=== PATIENT | male | born 1955 | race Caucasian/White ===

== ENCOUNTER 2016-08-05 12:08 | Inpatient (IN) | payer MEDICARE ==
[~2016-08-05] VITALS: Ht 180.3 cm; Wt 59.0 kg
[~2016-08-05 12:08] MED LIST: CLOP75TA22 PO; OXYC1TAB7 PO
[2016-08-05 13:57] VITALS: BP 129/69
[2016-08-05] MEDS: morphine SULFATE 10 MG/ML, 1ML IVPush PRN ×5 (14:08→22:09)
[2016-08-05] MEDS ORDERED: ACETAMINOPHEN 500 MG TABLET PO PRN (14:30)
[2016-08-05] MEDS: PIPERACILLIN/TAZO/PMX 3.375GM 50 ML IV SCH ×2 (15:02→20:45)
[2016-08-05 16:08] LABS: BLOOD UREA NITROGEN 12 mg/dL (7-18)
[2016-08-05 16:13] LABS: HEMOGLOBIN 9.2 g/dL (13.7-18.0)
[2016-08-05 16:49] LABS: DIFF TOTAL CELLS COUNTED 100 CELL DIFF
[2016-08-05 16:50] LABS: VERIFY COUNTS? YES
[2016-08-05 16:51] LABS: ANISOCYTOSIS 1+; LARGE PLATELETS 2+
[2016-08-05] MEDS ORDERED: FENTANYL PF 250 MCG/5ML ONE (16:55)
[2016-08-05] MEDS ORDERED: CEFOTETAN 1 GM ONE (16:56)
[2016-08-05] MEDS ORDERED: NEOSTIGMINE 1 MG/ML, 10ML ONE (16:56)
[2016-08-05] MEDS ORDERED: GLYCOPYRROLATE 0.2MG/1ML ONE (16:56)
[2016-08-05] MEDS ORDERED: METOPROLOL 1 MG/ML, 5ML ONE (16:56)
[2016-08-05] MEDS ORDERED: ROCURONIUM 10 MG/ML ONE (16:56)
[2016-08-05] MEDS ORDERED: ONDANSETRON 2MG/ML, 2ML ONE (16:56)
[2016-08-05] MEDS ORDERED: METOPROLOL 1 MG/ML, 5ML IV PRN (17:30)
[2016-08-05] MEDS ORDERED: ALBUTEROL SULFATE 2.5 MG/3 ML NPPB PRN (17:30)
[2016-08-05] MEDS ORDERED: OXYcodone 5 MG/5 ML ORAL.SOL UDC PO PRN (17:30)
[2016-08-05] MEDS ORDERED: ONDANSETRON 2MG/ML, 2ML IVPush PRN (17:30)
[2016-08-05] MEDS ORDERED: hydrALAzine 20 MG/ML, 1ML IV PRN (17:30)
[2016-08-05] MEDS ORDERED: PROMETHAZINE 25 MG/ML, 1ML IV PRN (17:30)
[2016-08-05] MEDS ORDERED: EPHEDRINE 50 MG/ML, 1ML IVPush PRN (17:30)
[2016-08-05] MEDS ORDERED: ACETAMINOPHEN 325 MG TABLET PO PRN (17:30)
[2016-08-05] MEDS ORDERED: LABETALOL 5MG/ML, 20ML IV PRN (17:30)
[2016-08-05] MEDS ORDERED: OXYcodone 5 MG/5 ML ORAL.SOL UDC ONE (18:14)
[2016-08-05] MEDS ORDERED: FENTANYL PF 100 MCG/2ML ONE (18:14)
[2016-08-05] MEDS: FENTANYL PF 100 MCG/2ML IV PRN ×2 (18:15→18:30)
[2016-08-05] MEDS ORDERED: HYDROmorphone 2 MG/ML, 1ML ONE (18:43)
[2016-08-05] MEDS: HYDROmorphone 1 MG/ML, 1ML IV PRN ×4 (18:47→19:18)
[2016-08-05 20:07] VITALS: BP 116/71
[2016-08-05] MEDS ORDERED: MAGNESIUM HYDROXIDE 8%, 30ML UDC PO ONE (20:30)
[2016-08-05] MEDS: KETOROLAC 30 MG/1 ML IV SCH (20:30)
[2016-08-05] MEDS ORDERED: SODIUM CHLORIDE 0.9% 500 ML IV ONE (22:30)
[2016-08-06] MEDS: morphine SULFATE 10 MG/ML, 1ML IVPush PRN ×2 (00:11→01:10)
[2016-08-06 00:43] VITALS: BP 86/61
[2016-08-06] MEDS: OXYcodone/APAP 7.5/325MG TABLET PO PRN ×5 (01:10→18:26)
[2016-08-06] MEDS: LACTATED RINGERS 1,000 ML IV SCH ×3 (02:00→23:22)
[2016-08-06] MEDS: DOCUSATE 100 MG CAPSULE PO SCH ×3 (02:56→20:27)
[2016-08-06] MEDS: PIPERACILLIN/TAZO/PMX 3.375GM 50 ML IV SCH ×4 (02:56→20:25)
[2016-08-06] MEDS: KETOROLAC 30 MG/1 ML IV SCH ×4 (02:56→20:25)
[2016-08-06 04:29] VITALS: BP 95/59
[2016-08-06 06:20] LABS: HEMOGLOBIN 7.5 g/dL (13.7-18.0)
[2016-08-06 06:33] LABS: DIFF TOTAL CELLS COUNTED 100 CELL DIFF
[2016-08-06 06:35] LABS: VERIFY COUNTS? YES
[2016-08-06 06:36] LABS: ANISOCYTOSIS 1+
[2016-08-06 06:37] LABS: SPHEROCYTES 1+
[2016-08-06 06:39] LABS: LARGE PLATELETS 1+; POLYCHROMASIA 1+
[2016-08-06 09:48] VITALS: BP 105/70
[2016-08-06 15:15] VITALS: BP 113/74
[2016-08-06] MEDS ORDERED: SODIUM CHLORIDE 0.9% 1,000ML IVBOLUS ONE (18:00)
[2016-08-06 20:11] VITALS: BP 134/73
[2016-08-07] VITALS (15 sets, daily range): BP systolic 103–134; BP diastolic 57–72
[2016-08-07] MEDS: OXYcodone/APAP 7.5/325MG TABLET PO PRN ×3 (00:53→23:32)
[2016-08-07] MEDS ORDERED: OXYC-223 PO (02:47)
[2016-08-07] MEDS ORDERED: augmentin (02:48)
[2016-08-07] MEDS: PIPERACILLIN/TAZO/PMX 3.375GM 50 ML IV SCH ×4 (03:00→23:32)
[2016-08-07] MEDS: KETOROLAC 30 MG/1 ML IV SCH ×4 (03:00→23:31)
[2016-08-07 06:02] LABS: HEMOGLOBIN 5.3 g/dL (13.7-18.0)
[2016-08-07] MEDS: LACTATED RINGERS 1,000 ML IV SCH ×2 (11:25→18:11)
[2016-08-07] MEDS: DOCUSATE 100 MG CAPSULE PO SCH ×2 (11:25→22:15)
[2016-08-07 17:39] LABS: HEMOGLOBIN 8.4 g/dL (13.7-18.0)
[2016-08-07] MEDS ORDERED: ALUMINUM/MAG/SIMETHICONE 30 ML UDC PO PRN (18:00)
[2016-08-07] MEDS: FAMOTIDINE 20 MG/2 ML IVPush SCH (22:14)
[2016-08-08] MEDS: LACTATED RINGERS 1,000 ML IV SCH ×3 (02:00→18:00)
[2016-08-08 03:47] VITALS: BP 126/68
[2016-08-08] MEDS: OXYcodone/APAP 7.5/325MG TABLET PO PRN ×3 (05:40→21:17)
[2016-08-08] MEDS: PIPERACILLIN/TAZO/PMX 3.375GM 50 ML IV SCH ×4 (05:40→23:30)
[2016-08-08] MEDS: KETOROLAC 30 MG/1 ML IV SCH ×4 (05:40→23:30)
[2016-08-08 09:21] VITALS: BP 130/68
[2016-08-08] MEDS: DOCUSATE 100 MG CAPSULE PO SCH ×2 (09:26→21:17)
[2016-08-08] MEDS: FAMOTIDINE 20 MG/2 ML IVPush SCH ×2 (09:26→21:00)
[2016-08-08] MEDS ORDERED: PROMETHAZINE 25MG TABLET PO PRN (11:30)
[2016-08-08 15:52] VITALS: BP 149/75
[2016-08-08 18:47] LABS: BLOOD UREA NITROGEN 21 mg/dL (7-18)
[2016-08-08 18:50] VITALS: BP 124/65
[2016-08-09] MEDS: LACTATED RINGERS 1,000 ML IV SCH ×3 (02:00→20:00)
[2016-08-09 02:10] VITALS: BP 137/67
[2016-08-09] MEDS: morphine SULFATE 10 MG/ML, 1ML IVPush PRN ×4 (04:51→22:45)
[2016-08-09] MEDS: PIPERACILLIN/TAZO/PMX 3.375GM 50 ML IV SCH ×4 (05:02→22:45)
[2016-08-09 05:55] LABS: HEMOGLOBIN 9.1 g/dL (13.7-18.0)
[2016-08-09 07:15] VITALS: BP 122/60
[2016-08-09] MEDS: KETOROLAC 30 MG/1 ML IV SCH ×4 (07:57→22:46)
[2016-08-09] MEDS: DOCUSATE 100 MG CAPSULE PO SCH ×2 (09:00→21:00)
[2016-08-09] MEDS: FAMOTIDINE 20 MG/2 ML IVPush SCH ×2 (09:44→22:50)
[2016-08-09 12:30] VITALS: BP 123/66
[2016-08-09 19:00] VITALS: BP 148/77
[2016-08-10 02:05] VITALS: BP 131/78
[2016-08-10] MEDS: LACTATED RINGERS 1,000 ML IV SCH ×2 (04:00→10:36)
[2016-08-10] MEDS: morphine SULFATE 10 MG/ML, 1ML IVPush PRN ×4 (04:30→23:33)
[2016-08-10] MEDS: KETOROLAC 30 MG/1 ML IV SCH ×3 (05:30→16:45)
[2016-08-10] MEDS: PIPERACILLIN/TAZO/PMX 3.375GM 50 ML IV SCH ×4 (05:30→23:33)
[2016-08-10 06:18] LABS: HEMOGLOBIN 9.4 g/dL (13.7-18.0)
[2016-08-10 06:21] LABS: BLOOD UREA NITROGEN 21 mg/dL (7-18)
[2016-08-10 06:39] VITALS: BP 120/67
[2016-08-10] MEDS: DOCUSATE 100 MG CAPSULE PO SCH ×2 (10:25→19:33)
[2016-08-10] MEDS: FAMOTIDINE 20 MG/2 ML IVPush SCH ×2 (10:31→19:33)
[2016-08-10 13:42] VITALS: BP 132/73
[2016-08-10] MEDS: METOCLOPRAMIDE 5 MG/ML, 2ML IVPush SCH (19:33)
[2016-08-10 19:44] VITALS: BP 155/86
[2016-08-11] MEDS: LACTATED RINGERS 1,000 ML IV SCH ×2 (00:03→08:06)
[2016-08-11 03:08] VITALS: BP 125/66
[2016-08-11] MEDS: METOCLOPRAMIDE 5 MG/ML, 2ML IVPush SCH ×4 (03:28→20:45)
[2016-08-11] MEDS: PIPERACILLIN/TAZO/PMX 3.375GM 50 ML IV SCH ×4 (04:56→23:30)
[2016-08-11 05:53] LABS: BLOOD UREA NITROGEN 20 mg/dL (7-18)
[2016-08-11 05:56] LABS: HEMOGLOBIN 9.3 g/dL (13.7-18.0)
[2016-08-11] MEDS: morphine SULFATE 10 MG/ML, 1ML IVPush PRN ×5 (05:57→23:37)
[2016-08-11 06:55] VITALS: BP 123/68
[2016-08-11] MEDS: DOCUSATE 100 MG CAPSULE PO SCH ×2 (07:50→20:52)
[2016-08-11] MEDS: FAMOTIDINE 20 MG/2 ML IVPush SCH (08:05)
[2016-08-11] MEDS ORDERED: TPN PER PHARMACY MC PRN (10:30)
[2016-08-11] MEDS ORDERED: LACTATED RINGERS 1,000 ML IV SCH (10:55)
[2016-08-11 12:55] VITALS: BP 140/69
[2016-08-11] MEDS ORDERED: FAT EMULSIONS IV SCH (17:00)
[2016-08-11] MEDS ORDERED: DEXTROSE 10% 500 ML IV PRN (17:00)
[2016-08-11] MEDS ORDERED: [UNRECOGNIZED DRUG - OTHER] IV SCH (17:00)
[2016-08-11] MEDS ORDERED: AMINO ACID 10% IV SCH (17:00)
[2016-08-11] MEDS ORDERED: DEXTROSE 50%, 50ML SYRINGE IVPush PRN (17:00)
[2016-08-11] MEDS ORDERED: DEXTROSE 70% IV SCH (17:00)
[2016-08-11] MEDS: FILTER, DISP 1.2 MICRON FOR TPN/PVN IV PRN (17:41)
[2016-08-11 19:21] VITALS: BP 138/66
[2016-08-11] MEDS: ENOXAPARIN 30 MG/0.3 ML SQ SCH (20:48)
[2016-08-11] MEDS: INSULIN REGULAR LOW DOSE Q6H X 48HRS SQ-INSULIN SCH (21:22)
[2016-08-12 01:58] VITALS: BP 130/70
[2016-08-12] MEDS: METOCLOPRAMIDE 5 MG/ML, 2ML IVPush SCH ×4 (03:07→20:32)
[2016-08-12] MEDS: morphine SULFATE 10 MG/ML, 1ML IVPush PRN ×8 (03:25→22:53)
[2016-08-12] MEDS: INSULIN REGULAR LOW DOSE Q6H X 48HRS SQ-INSULIN SCH ×4 (03:32→19:52)
[2016-08-12 03:51] LABS: ASPARTATE AMINO TRANSFERASE 18 U/L (15-37); BLOOD UREA NITROGEN 16 mg/dL (7-18)
[2016-08-12] MEDS: PIPERACILLIN/TAZO/PMX 3.375GM 50 ML IV SCH ×4 (05:38→23:00)
[2016-08-12 06:50] VITALS: BP 122/80
[2016-08-12] MEDS: DOCUSATE 100 MG CAPSULE PO SCH ×2 (08:21→19:57)
[2016-08-12] MEDS ORDERED: SODIUM CHLORIDE 0.9%, 500ML IVBOLUS ONE (09:30)
[2016-08-12] MEDS: ENOXAPARIN 30 MG/0.3 ML SQ SCH ×2 (09:55→19:57)
[2016-08-12] MEDS: SODIUM CHLORIDE 0.45% 1,000 ML IV SCH (12:09)
[2016-08-12 13:37] VITALS: BP 128/74
[2016-08-12 15:20] LABS: ASPARTATE AMINO TRANSFERASE 15 U/L (15-37); BLOOD UREA NITROGEN 12 mg/dL (7-18)
[2016-08-12 15:25] LABS: IS PT STATUS REG ER OR PRE ER? NO
[2016-08-12] MEDS ORDERED: FILTER 0.22 MICRON FOR AMIODARONE IV PRN (16:00)
[2016-08-12] MEDS: AMIODARONE 900 MG in DEXTROSE 5% 482 ML IV PRN (16:28)
[2016-08-12] MEDS ORDERED: [UNRECOGNIZED DRUG - OTHER] IV SCH (17:00)
[2016-08-12] MEDS ORDERED: AMINO ACID 10% IV SCH (17:00)
[2016-08-12] MEDS ORDERED: FAT EMULSIONS IV SCH (17:00)
[2016-08-12] MEDS ORDERED: DEXTROSE 70% IV SCH (17:00)
[2016-08-12] MEDS: FILTER, DISP 1.2 MICRON FOR TPN/PVN IV PRN (17:58)
[2016-08-12 20:00] VITALS: BP 139/78
[2016-08-13] MEDS: SODIUM CHLORIDE 0.45% 1,000 ML IV SCH (02:42)
[2016-08-13] MEDS: morphine SULFATE 10 MG/ML, 1ML IVPush PRN ×3 (02:42→09:00)
[2016-08-13] MEDS: METOCLOPRAMIDE 5 MG/ML, 2ML IVPush SCH ×4 (02:42→21:48)
[2016-08-13] MEDS: INSULIN REGULAR LOW DOSE Q6H X 48HRS SQ-INSULIN SCH ×3 (02:44→16:35)
[2016-08-13 03:50] VITALS: BP 159/79
[2016-08-13] MEDS: PIPERACILLIN/TAZO/PMX 3.375GM 50 ML IV SCH ×4 (05:15→23:31)
[2016-08-13] MEDS: ASPIRIN 325 MG TABLET PO SCH (05:16)
[2016-08-13 06:47] LABS: BLOOD UREA NITROGEN 14 mg/dL (7-18)
[2016-08-13 08:43] VITALS: BP 161/81
[2016-08-13] MEDS: ENOXAPARIN 30 MG/0.3 ML SQ SCH ×2 (09:00→21:48)
[2016-08-13] MEDS: DOCUSATE 100 MG CAPSULE PO SCH ×2 (09:00→21:00)
[2016-08-13] MEDS ORDERED: MIDAZOLAM 1 MG/ML, 2ML ONE (09:16)
[2016-08-13] MEDS ORDERED: FENTANYL PF 250 MCG/5ML ONE (09:16)
[2016-08-13] MEDS ORDERED: ROCURONIUM 10 MG/ML ONE (09:37)
[2016-08-13] MEDS ORDERED: PROPOFOL 10 MG/ML, 20ML ONE (09:37)
[2016-08-13] MEDS ORDERED: VASOPRESSIN 20 UNIT/ML, 1ML ONE (09:37)
[2016-08-13] MEDS ORDERED: HYDROmorphone 2 MG/ML, 1ML ONE ×2 (10:11→12:32)
[2016-08-13] MEDS ORDERED: ALBUMIN HUMAN 5% 500 ML ONE ×2 (10:27→11:07)
[2016-08-13 11:06] LABS: ABG COLLECTION SITE ARTERIAL LINE
[2016-08-13] MEDS ORDERED: THROMBIN 20,000 UNIT VIAL TP ONE (11:36)
[2016-08-13 12:11] LABS: ABG COLLECTION SITE ARTERIAL LINE
[2016-08-13] MEDS ORDERED: BACITRACIN 50,000 UNIT ONE (12:13)
[2016-08-13 13:58] LABS: HEMOGLOBIN 8.5 g/dL (13.7-18.0)
[2016-08-13] MEDS ORDERED: ENALAPRILAT 1.25 MG/ML, 2ML IV PRN (14:00)
[2016-08-13] MEDS ORDERED: LABETALOL 5MG/ML, 20ML IVPush PRN (14:00)
[2016-08-13] MEDS: ALBUTEROL/IPRATROPIUM 2.5MG/0.5MG, 3 ML INLINE SCH ×4 (14:20→22:01)
[2016-08-13] MEDS ORDERED: ALBUTEROL/IPRATROPIUM 2.5MG/0.5MG, 3 ML ONE (14:22)
[2016-08-13] MEDS ORDERED: ALBUTEROL/IPRATROPIUM 2.5MG/0.5MG, 3 ML INLINE PRN (14:30)
[2016-08-13] MEDS: AMIODARONE 900 MG in DEXTROSE 5% 482 ML IV PRN (15:17)
[2016-08-13] MEDS ORDERED: LACTULOSE 20 GM/30 ML UDC NG PRN (15:30)
[2016-08-13] MEDS ORDERED: LACTATED RINGERS 500 ML IV PRN (15:30)
[2016-08-13] MEDS ORDERED: LORazepam 1MG TABLET PO PRN (15:30)
[2016-08-13] MEDS ORDERED: LORazepam 2 MG/ML, 1ML IV PRN (15:30)
[2016-08-13] MEDS ORDERED: PHARMACY MAY ADJ FOR RENAL FX MC SCH (15:30)
[2016-08-13] MEDS ORDERED: SODIUM CHLORIDE 0.45% 1,000 ML IV SCH (15:30)
[2016-08-13] MEDS ORDERED: LACTATED RINGERS 1,000 ML IV PRN (15:30)
[2016-08-13] MEDS ORDERED: DEXTROSE 50%, 50ML SYRINGE IVPush PRN (15:30)
[2016-08-13] MEDS ORDERED: ONDANSETRON 2MG/ML, 2ML IV PRN (15:30)
[2016-08-13] MEDS ORDERED: LIDOCAINE-MPF 1%, 2ML ENDO PRN (15:30)
[2016-08-13] MEDS ORDERED: SODIUM CHLORIDE 0.9%, 500ML IV PRN (15:30)
[2016-08-13] MEDS ORDERED: GLUCAGON 1 MG IM PRN (15:30)
[2016-08-13] MEDS: PROPOFOL 100 ML IV PRN (16:18)
[2016-08-13] MEDS: NS + 20MEQ KCL 1,000 ML IV SCH (16:38)
[2016-08-13] MEDS ORDERED: DEXTROSE 70% IV SCH (17:00)
[2016-08-13] MEDS ORDERED: NOREPINEPHRINE 4 MG in SODIUM CHLORIDE 0.9% 246 ML IV PRN (17:00)
[2016-08-13] MEDS ORDERED: [UNRECOGNIZED DRUG - OTHER] IV SCH (17:00)
[2016-08-13] MEDS ORDERED: FAT EMULSIONS IV SCH (17:00)
[2016-08-13] MEDS ORDERED: AMINO ACID 10% IV SCH (17:00)
[2016-08-13] MEDS: morphine SULFATE 10 MG/ML, 1ML IV PRN (22:02)
[2016-08-14] MEDS: morphine SULFATE 10 MG/ML, 1ML IV PRN ×5 (01:05→23:06)
[2016-08-14] MEDS ORDERED: SODIUM CHLORIDE 0.9% 1,000ML IVBOLUS ONE (01:30)
[2016-08-14] MEDS: ALBUTEROL/IPRATROPIUM 2.5MG/0.5MG, 3 ML INLINE SCH ×6 (01:49→22:34)
[2016-08-14] MEDS: METOCLOPRAMIDE 5 MG/ML, 2ML IVPush SCH ×4 (03:01→21:36)
[2016-08-14] MEDS: PROPOFOL 100 ML IV PRN ×3 (03:02→17:45)
[2016-08-14 03:48] LABS: ABG COLLECTION SITE ARTERIAL LINE
[2016-08-14 03:56] LABS: ASPARTATE AMINO TRANSFERASE 27 U/L (15-37); BLOOD UREA NITROGEN 24 mg/dL (7-18)
[2016-08-14 04:16] LABS: HEMOGLOBIN 7.7 g/dL (13.7-18.0)
[2016-08-14 04:33] LABS: DIFF TOTAL CELLS COUNTED 100 CELL DIFF
[2016-08-14 04:35] LABS: ANISOCYTOSIS 1+
[2016-08-14 04:36] LABS: HYPOCHROMIA 1+
[2016-08-14 04:37] LABS: VERIFY COUNTS? YES
[2016-08-14] MEDS: NS + 20MEQ KCL 1,000 ML IV SCH ×2 (04:50→14:16)
[2016-08-14] MEDS: PIPERACILLIN/TAZO/PMX 3.375GM 50 ML IV SCH ×4 (05:06→23:06)
[2016-08-14] MEDS: ASPIRIN 325 MG TABLET PO SCH (05:06)
[2016-08-14 05:36] VITALS: BP 114/65
[2016-08-14] MEDS ORDERED: INSULIN REGULAR LOW DOSE QDAY SQ-INSULIN SCH (08:00)
[2016-08-14] MEDS: ENOXAPARIN 30 MG/0.3 ML SQ SCH ×2 (09:00→21:36)
[2016-08-14] MEDS: SENNA/DOCUSATE TABLET NG PRN (09:36)
[2016-08-14] MEDS ORDERED: PROPOFOL 10 MG/ML, 20ML ONE (09:37)
[2016-08-14] MEDS ORDERED: ROCURONIUM 10 MG/ML ONE (09:37)
[2016-08-14] MEDS: INSULIN REGULAR, HUMAN 100 UNITS/ML, 3ML MEDIUM DOSE SS SQ-INSULIN SCH ×2 (13:30→21:06)
[2016-08-14] MEDS: DOCUSATE 100 MG CAPSULE PO SCH ×2 (14:15→21:00)
[2016-08-14] MEDS ORDERED: AMINO ACID 10% IV SCH (17:00)
[2016-08-14] MEDS ORDERED: [UNRECOGNIZED DRUG - OTHER] IV SCH (17:00)
[2016-08-14] MEDS ORDERED: DEXTROSE 70% IV SCH (17:00)
[2016-08-14] MEDS ORDERED: FAT EMULSIONS IV SCH (17:00)
[2016-08-14] MEDS: AMIODARONE 900 MG in DEXTROSE 5% 482 ML IV PRN (20:37)
[2016-08-15] VITALS (8 sets, daily range): BP systolic 115–142; BP diastolic 50–58
[2016-08-15] MEDS: METOCLOPRAMIDE 5 MG/ML, 2ML IVPush SCH ×4 (01:37→20:35)
[2016-08-15] MEDS: PROPOFOL 100 ML IV PRN ×2 (01:37→07:58)
[2016-08-15] MEDS: morphine SULFATE 10 MG/ML, 1ML IV PRN ×3 (01:45→20:35)
[2016-08-15] MEDS: ALBUTEROL/IPRATROPIUM 2.5MG/0.5MG, 3 ML INLINE SCH (02:02)
[2016-08-15] MEDS: ASPIRIN 325 MG TABLET PO SCH (05:35)
[2016-08-15] MEDS: PIPERACILLIN/TAZO/PMX 3.375GM 50 ML IV SCH ×3 (05:51→17:50)
[2016-08-15] MEDS: NS + 20MEQ KCL 1,000 ML IV SCH (05:53)
[2016-08-15 05:58] LABS: ABG COLLECTION SITE NOT DOCUMENTED
[2016-08-15] MEDS: INSULIN REGULAR, HUMAN 100 UNITS/ML, 3ML MEDIUM DOSE SS SQ-INSULIN SCH ×4 (05:58→17:50)
[2016-08-15 06:07] LABS: HEMOGLOBIN 6.5 g/dL (13.7-18.0)
[2016-08-15 06:24] LABS: DIFF TOTAL CELLS COUNTED 100 CELL DIFF
[2016-08-15 06:25] LABS: VERIFY COUNTS? YES
[2016-08-15 06:26] LABS: ANISOCYTOSIS 1+
[2016-08-15 07:28] LABS: ASPARTATE AMINO TRANSFERASE 39 U/L (15-37); BLOOD UREA NITROGEN 25 mg/dL (7-18)
[2016-08-15] MEDS: MICAFUNGIN 100 MG in SODIUM CHLORIDE 0.9% 100 ML IV SCH (07:58)
[2016-08-15] MEDS: DOCUSATE 100 MG CAPSULE PO SCH ×2 (09:00→20:24)
[2016-08-15] MEDS: FENTANYL PF 2,500 MCG in SODIUM CHLORIDE 0.9% 200 ML IV PRN (10:08)
[2016-08-15] MEDS: ENOXAPARIN 30 MG/0.3 ML SQ SCH ×2 (10:11→20:35)
[2016-08-15] MEDS ORDERED: FAT EMULSIONS IV SCH (17:00)
[2016-08-15] MEDS ORDERED: AMINO ACID 10% IV SCH (17:00)
[2016-08-15] MEDS ORDERED: [UNRECOGNIZED DRUG - OTHER] IV SCH (17:00)
[2016-08-15] MEDS ORDERED: DEXTROSE 70% IV SCH (17:00)
[2016-08-15] MEDS: MORPHINE SULFATE 4 MG/ML, 1ML IVPush PRN (21:28)
[2016-08-16] MEDS: PIPERACILLIN/TAZO/PMX 3.375GM 50 ML IV SCH ×2 (00:09→05:48)
[2016-08-16] MEDS: MORPHINE SULFATE 4 MG/ML, 1ML IVPush PRN ×6 (00:10→19:40)
[2016-08-16] MEDS: AMIODARONE 900 MG in DEXTROSE 5% 482 ML IV PRN (00:10)
[2016-08-16] MEDS: METOCLOPRAMIDE 5 MG/ML, 2ML IVPush SCH ×4 (02:11→19:47)
[2016-08-16] MEDS: NS + 20MEQ KCL 1,000 ML IV SCH (02:11)
[2016-08-16 05:02] LABS: HEMOGLOBIN 9.1 g/dL (13.7-18.0)
[2016-08-16] MEDS: ASPIRIN 325 MG TABLET PO SCH (05:13)
[2016-08-16 05:15] LABS: BLOOD UREA NITROGEN 27 mg/dL (7-18)
[2016-08-16 05:25] LABS: ABG COLLECTION SITE NOT DOCUMENTED
[2016-08-16 05:29] LABS: DIFF TOTAL CELLS COUNTED 100 CELL DIFF
[2016-08-16 05:31] LABS: ANISOCYTOSIS 1+; VERIFY COUNTS? YES
[2016-08-16 05:32] LABS: HYPOCHROMIA 1+; POLYCHROMASIA 1+
[2016-08-16] MEDS: INSULIN REGULAR, HUMAN 100 UNITS/ML, 3ML MEDIUM DOSE SS SQ-INSULIN SCH ×4 (06:00→18:43)
[2016-08-16 06:06] VITALS: BP 154/62
[2016-08-16] MEDS: ERTAPENEM 1 GM in SODIUM CHLORIDE 0.9% 50 ML IV SCH (08:23)
[2016-08-16] MEDS: MICAFUNGIN 100 MG in SODIUM CHLORIDE 0.9% 100 ML IV SCH (08:23)
[2016-08-16] MEDS: DOCUSATE 100 MG CAPSULE PO SCH ×2 (09:00→20:32)
[2016-08-16] MEDS: ENOXAPARIN 30 MG/0.3 ML SQ SCH ×2 (10:09→20:34)
[2016-08-16] MEDS: FENTANYL PF 2,500 MCG in SODIUM CHLORIDE 0.9% 200 ML IV PRN (11:05)
[2016-08-16] MEDS: FUROSEMIDE 20 MG/2 ML IV SCH (13:02)
[2016-08-16] MEDS ORDERED: AMINO ACID 10% IV SCH (17:00)
[2016-08-16] MEDS ORDERED: FAT EMULSIONS IV SCH (17:00)
[2016-08-16] MEDS ORDERED: DEXTROSE 70% IV SCH (17:00)
[2016-08-16] MEDS ORDERED: [UNRECOGNIZED DRUG - OTHER] IV SCH (17:00)
[2016-08-16] MEDS: FILTER, DISP 1.2 MICRON FOR TPN/PVN IV PRN (18:27)
[2016-08-17] MEDS: MORPHINE SULFATE 4 MG/ML, 1ML IVPush PRN ×6 (00:06→18:34)
[2016-08-17] MEDS: FUROSEMIDE 20 MG/2 ML IV SCH ×2 (00:11→12:23)
[2016-08-17] MEDS: METOCLOPRAMIDE 5 MG/ML, 2ML IVPush SCH ×4 (02:34→19:39)
[2016-08-17 05:00] VITALS: BP 167/73
[2016-08-17 05:09] LABS: HEMOGLOBIN 9.8 g/dL (13.7-18.0)
[2016-08-17 05:24] LABS: BLOOD UREA NITROGEN 31 mg/dL (7-18)
[2016-08-17 05:48] LABS: DIFF TOTAL CELLS COUNTED 100 CELL DIFF
[2016-08-17 05:50] LABS: VERIFY COUNTS? YES
[2016-08-17 05:51] LABS: ANISOCYTOSIS 1+; HYPOCHROMIA 1+; LARGE PLATELETS 1+; POLYCHROMASIA 1+
[2016-08-17] MEDS: INSULIN REGULAR, HUMAN 100 UNITS/ML, 3ML MEDIUM DOSE SS SQ-INSULIN SCH ×5 (06:00→19:46)
[2016-08-17] MEDS: ASPIRIN 325 MG TABLET PO SCH (06:34)
[2016-08-17] MEDS: ERTAPENEM 1 GM in SODIUM CHLORIDE 0.9% 50 ML IV SCH (07:08)
[2016-08-17] MEDS: AMIODARONE 900 MG in DEXTROSE 5% 482 ML IV PRN (07:38)
[2016-08-17] MEDS: MICAFUNGIN 100 MG in SODIUM CHLORIDE 0.9% 100 ML IV SCH (07:53)
[2016-08-17] MEDS: DOCUSATE 100 MG CAPSULE PO SCH ×2 (09:00→19:39)
[2016-08-17] MEDS: ENOXAPARIN 30 MG/0.3 ML SQ SCH ×2 (10:47→19:39)
[2016-08-17] MEDS: FENTANYL PF 2,500 MCG in SODIUM CHLORIDE 0.9% 200 ML IV PRN (11:37)
[2016-08-17] MEDS ORDERED: AMINO ACID 10% IV SCH (17:00)
[2016-08-17] MEDS ORDERED: DEXTROSE 70% IV SCH (17:00)
[2016-08-17] MEDS ORDERED: [UNRECOGNIZED DRUG - OTHER] IV SCH (17:00)
[2016-08-17] MEDS ORDERED: FAT EMULSIONS IV SCH (17:00)
[2016-08-17 19:12] VITALS: BP 166/78
[2016-08-17] MEDS: OXYcodone/APAP 7.5/325MG TABLET PO PRN (20:46)
[2016-08-18] MEDS: INSULIN REGULAR, HUMAN 100 UNITS/ML, 3ML MEDIUM DOSE SS SQ-INSULIN SCH ×4 (00:59→20:49)
[2016-08-18] MEDS: FUROSEMIDE 20 MG/2 ML IV SCH ×2 (00:59→13:48)
[2016-08-18] MEDS: METOCLOPRAMIDE 5 MG/ML, 2ML IVPush SCH ×4 (01:01→20:49)
[2016-08-18 01:35] VITALS: BP 149/77
[2016-08-18 05:03] LABS: HEMOGLOBIN 9.6 g/dL (13.7-18.0)
[2016-08-18 05:17] LABS: ASPARTATE AMINO TRANSFERASE 39 U/L (15-37); BLOOD UREA NITROGEN 33 mg/dL (7-18)
[2016-08-18] MEDS: ASPIRIN 325 MG TABLET PO SCH (05:32)
[2016-08-18 07:22] VITALS: BP 164/83
[2016-08-18] MEDS: ERTAPENEM 1 GM in SODIUM CHLORIDE 0.9% 50 ML IV SCH (08:06)
[2016-08-18] MEDS: ENOXAPARIN 30 MG/0.3 ML SQ SCH ×2 (08:07→20:50)
[2016-08-18] MEDS: DOCUSATE 100 MG CAPSULE PO SCH ×2 (08:14→20:49)
[2016-08-18] MEDS: MICAFUNGIN 100 MG in SODIUM CHLORIDE 0.9% 100 ML IV SCH (08:18)
[2016-08-18] MEDS: OXYcodone/APAP 7.5/325MG TABLET PO PRN ×2 (08:24→18:09)
[2016-08-18] MEDS: MORPHINE SULFATE 4 MG/ML, 1ML IVPush PRN ×2 (09:46→13:47)
[2016-08-18] MEDS: FENTANYL PF 2,500 MCG in SODIUM CHLORIDE 0.9% 200 ML IV PRN (11:33)
[2016-08-18 14:20] VITALS: BP 160/76
[2016-08-18] MEDS ORDERED: AMINO ACID 10% IV SCH (17:00)
[2016-08-18] MEDS ORDERED: FAT EMULSIONS IV SCH (17:00)
[2016-08-18] MEDS ORDERED: [UNRECOGNIZED DRUG - OTHER] IV SCH (17:00)
[2016-08-18] MEDS ORDERED: DEXTROSE 70% IV SCH (17:00)
[2016-08-18] MEDS: METOPROLOL TARTRATE 25 MG TABLET PO SCH (18:05)
[2016-08-18] MEDS: FILTER, DISP 1.2 MICRON FOR TPN/PVN IV PRN (18:06)
[2016-08-18 20:58] VITALS: BP 157/69
[2016-08-19] MEDS: FUROSEMIDE 20 MG/2 ML IV SCH ×2 (00:32→11:36)
[2016-08-19] MEDS: INSULIN REGULAR, HUMAN 100 UNITS/ML, 3ML MEDIUM DOSE SS SQ-INSULIN SCH ×2 (02:23→08:00)
[2016-08-19] MEDS: METOCLOPRAMIDE 5 MG/ML, 2ML IVPush SCH ×4 (02:24→19:43)
[2016-08-19] MEDS: OXYcodone/APAP 7.5/325MG TABLET PO PRN ×2 (02:29→08:18)
[2016-08-19 03:01] VITALS: BP 156/77
[2016-08-19 05:14] LABS: HEMOGLOBIN 9.3 g/dL (13.7-18.0)
[2016-08-19 05:27] LABS: BLOOD UREA NITROGEN 31 mg/dL (7-18)
[2016-08-19] MEDS: ASPIRIN 325 MG TABLET PO SCH (05:43)
[2016-08-19] MEDS: METOPROLOL TARTRATE 25 MG TABLET PO SCH ×2 (05:43→19:43)
[2016-08-19 05:52] LABS: DIFF TOTAL CELLS COUNTED 100 CELL DIFF
[2016-08-19 05:53] LABS: ANISOCYTOSIS 1+; HYPOCHROMIA 1+; POLYCHROMASIA 1+; TARGET CELLS 1+; VERIFY COUNTS? YES
[2016-08-19 05:54] LABS: LARGE PLATELETS 1+
[2016-08-19] MEDS: MORPHINE SULFATE 4 MG/ML, 1ML IVPush PRN ×5 (06:15→20:32)
[2016-08-19 06:23] VITALS: BP 164/81
[2016-08-19] MEDS: FENTANYL PF 2,500 MCG in SODIUM CHLORIDE 0.9% 200 ML IV SCH (07:40)
[2016-08-19] MEDS: DOCUSATE 100 MG CAPSULE PO SCH ×2 (09:00→20:32)
[2016-08-19] MEDS: MICAFUNGIN 100 MG in SODIUM CHLORIDE 0.9% 100 ML IV SCH (09:05)
[2016-08-19] MEDS: ERTAPENEM 1 GM in SODIUM CHLORIDE 0.9% 50 ML IV SCH (10:24)
[2016-08-19] MEDS: SENNA/DOCUSATE TABLET NG PRN (11:36)
[2016-08-19] MEDS: ENOXAPARIN 30 MG/0.3 ML SQ SCH ×2 (11:36→20:32)
[2016-08-19] MEDS ORDERED: OMNIPAQUE 350 MG/ML, 100ML BOTTLE ONE (12:25)
[2016-08-19 12:39] VITALS: BP 165/82
[2016-08-19] MEDS ORDERED: DEXTROSE 70% IV SCH (17:00)
[2016-08-19] MEDS ORDERED: [UNRECOGNIZED DRUG - OTHER] IV SCH (17:00)
[2016-08-19] MEDS ORDERED: FAT EMULSIONS IV SCH (17:00)
[2016-08-19] MEDS ORDERED: AMINO ACID 10% IV SCH (17:00)
[2016-08-19 18:15] VITALS: BP 142/70
[2016-08-19 18:30] VITALS: BP 129/66
[2016-08-20] MEDS: FUROSEMIDE 20 MG/2 ML IV SCH ×2 (00:19→13:18)
[2016-08-20] MEDS: MORPHINE SULFATE 4 MG/ML, 1ML IVPush PRN ×4 (00:26→22:43)
[2016-08-20] MEDS: METOCLOPRAMIDE 5 MG/ML, 2ML IVPush SCH ×4 (02:19→22:21)
[2016-08-20 03:18] VITALS: BP 148/67
[2016-08-20] MEDS: METOPROLOL TARTRATE 25 MG TABLET PO SCH ×2 (05:35→17:48)
[2016-08-20] MEDS: ASPIRIN 325 MG TABLET PO SCH (05:35)
[2016-08-20 05:46] LABS: HEMOGLOBIN 8.7 g/dL (13.7-18.0)
[2016-08-20 06:07] LABS: DIFF TOTAL CELLS COUNTED 100 CELL DIFF
[2016-08-20 06:08] LABS: ANISOCYTOSIS 1+; VERIFY COUNTS? YES
[2016-08-20 06:09] LABS: POLYCHROMASIA 1+
[2016-08-20 06:10] LABS: HYPOCHROMIA 1+; LARGE PLATELETS 1+
[2016-08-20 06:40] VITALS: BP 141/62
[2016-08-20] MEDS: ERTAPENEM 1 GM in SODIUM CHLORIDE 0.9% 50 ML IV SCH (07:55)
[2016-08-20] MEDS: ENOXAPARIN 30 MG/0.3 ML SQ SCH ×2 (08:54→22:22)
[2016-08-20] MEDS: MICAFUNGIN 100 MG in SODIUM CHLORIDE 0.9% 100 ML IV SCH (08:55)
[2016-08-20] MEDS: OXYcodone/APAP 7.5/325MG TABLET PO PRN ×3 (08:59→17:48)
[2016-08-20] MEDS: DOCUSATE 100 MG CAPSULE PO SCH ×2 (08:59→22:21)
[2016-08-20] MEDS ORDERED: OXANDROLONE PO SCH (09:00)
[2016-08-20] MEDS: OXANDROLONE 2.5 MG TABLET PO SCH ×2 (10:26→22:22)
[2016-08-20 14:14] VITALS: BP 111/65
[2016-08-20] MEDS: FENTANYL PF 2,500 MCG in SODIUM CHLORIDE 0.9% 200 ML IV SCH (17:03)
[2016-08-20 18:19] VITALS: BP 115/61
[2016-08-20] MEDS ORDERED: OXANDROLONE 2.5 MG TABLET PO SCH (21:00)
[2016-08-21] MEDS: OXYcodone/APAP 7.5/325MG TABLET PO PRN ×4 (00:06→18:20)
[2016-08-21] MEDS: FUROSEMIDE 20 MG/2 ML IV SCH ×3 (00:06→23:58)
[2016-08-21 02:13] VITALS: BP 117/62
[2016-08-21] MEDS: MORPHINE SULFATE 4 MG/ML, 1ML IVPush PRN ×3 (05:23→23:57)
[2016-08-21] MEDS: METOPROLOL TARTRATE 25 MG TABLET PO SCH ×2 (05:41→18:24)
[2016-08-21] MEDS: ASPIRIN 325 MG TABLET PO SCH (05:41)
[2016-08-21] MEDS: METOCLOPRAMIDE 5 MG/ML, 2ML IVPush SCH ×4 (05:41→23:58)
[2016-08-21 06:42] VITALS: BP 118/66
[2016-08-21] MEDS ORDERED: POTASSIUM CHLORIDE 10% 20 MEQ/15 ML UDC PO ONE (07:30)
[2016-08-21] MEDS: MICAFUNGIN 100 MG in SODIUM CHLORIDE 0.9% 100 ML IV SCH (09:15)
[2016-08-21] MEDS: ERTAPENEM 1 GM in SODIUM CHLORIDE 0.9% 50 ML IV SCH (09:15)
[2016-08-21] MEDS: DOCUSATE 100 MG CAPSULE PO SCH ×2 (09:26→21:16)
[2016-08-21] MEDS: ENOXAPARIN 30 MG/0.3 ML SQ SCH ×2 (09:26→21:17)
[2016-08-21] MEDS: OXANDROLONE 2.5 MG TABLET PO SCH (10:03)
[2016-08-21 13:40] VITALS: BP 108/61
[2016-08-21] MEDS: FENTANYL PF 2,500 MCG in SODIUM CHLORIDE 0.9% 200 ML IV SCH (16:52)
[2016-08-21 18:26] VITALS: BP 121/66
[2016-08-21] MEDS: FERROUS SULFATE 325 MG TABLET PO SCH (21:16)
[2016-08-21] MEDS: MULTIVITAMIN 1 TABLET PO SCH (21:16)
[2016-08-22] MEDS: OXYcodone/APAP 7.5/325MG TABLET PO PRN (00:24)
[2016-08-22 02:05] VITALS: BP 135/66
[2016-08-22] MEDS: METOCLOPRAMIDE 5 MG/ML, 2ML IVPush SCH ×4 (06:00→23:16)
[2016-08-22] MEDS: METOPROLOL TARTRATE 25 MG TABLET PO SCH ×2 (06:00→17:31)
[2016-08-22] MEDS: ASPIRIN 325 MG TABLET PO SCH (06:00)
[2016-08-22 06:18] LABS: HEMOGLOBIN 7.8 g/dL (13.7-18.0)
[2016-08-22] MEDS: MORPHINE SULFATE 4 MG/ML, 1ML IVPush PRN ×3 (06:20→23:16)
[2016-08-22 06:41] LABS: ASPARTATE AMINO TRANSFERASE 41 U/L (15-37); BLOOD UREA NITROGEN 19 mg/dL (7-18)
[2016-08-22 06:53] VITALS: BP 123/60
[2016-08-22 07:20] LABS: DIFF TOTAL CELLS COUNTED 100 CELL DIFF
[2016-08-22 07:21] LABS: VERIFY COUNTS? YES
[2016-08-22 07:22] LABS: ANISOCYTOSIS 1+; POLYCHROMASIA 1+
[2016-08-22 07:23] LABS: HYPOCHROMIA 1+; LARGE PLATELETS 1+
[2016-08-22] MEDS: ERTAPENEM 1 GM in SODIUM CHLORIDE 0.9% 50 ML IV SCH (08:22)
[2016-08-22] MEDS: ENOXAPARIN 30 MG/0.3 ML SQ SCH ×2 (09:54→20:22)
[2016-08-22] MEDS: MULTIVITAMIN 1 TABLET PO SCH ×2 (09:54→20:22)
[2016-08-22] MEDS: MICAFUNGIN 100 MG in SODIUM CHLORIDE 0.9% 100 ML IV SCH (09:55)
[2016-08-22] MEDS: DOCUSATE 100 MG CAPSULE PO SCH ×2 (09:55→20:19)
[2016-08-22] MEDS: OXANDROLONE 2.5 MG TABLET PO SCH ×2 (09:55→22:59)
[2016-08-22] MEDS: FERROUS SULFATE 325 MG TABLET PO SCH ×2 (09:55→20:21)
[2016-08-22] MEDS: FUROSEMIDE 20 MG/2 ML IV SCH ×2 (11:44→23:16)
[2016-08-22 13:11] VITALS: BP 128/67
[2016-08-22] MEDS: OXYcodone IR 5MG TABLET PO PRN ×2 (14:26→20:23)
[2016-08-22] MEDS: FENTANYL PF 2,500 MCG in SODIUM CHLORIDE 0.9% 200 ML IV SCH (15:48)
[2016-08-22] MEDS: LACTOBACILLUS 1GM/ PACKET PO SCH ×2 (16:33→20:21)
[2016-08-22 17:29] VITALS: BP 123/68
[2016-08-22 22:00] VITALS: BP 119/67
[2016-08-23] MEDS: OXYcodone IR 5MG TABLET PO PRN ×5 (02:26→22:38)
[2016-08-23 03:20] VITALS: BP 135/67
[2016-08-23 05:29] LABS: BLOOD UREA NITROGEN 17 mg/dL (7-18)
[2016-08-23 05:46] LABS: HEMOGLOBIN 7.9 g/dL (13.7-18.0)
[2016-08-23] MEDS: LACTOBACILLUS 1GM/ PACKET PO SCH ×4 (06:00→21:59)
[2016-08-23] MEDS: ASPIRIN 325 MG TABLET PO SCH (06:00)
[2016-08-23] MEDS: METOPROLOL TARTRATE 25 MG TABLET PO SCH ×2 (06:07→17:41)
[2016-08-23] MEDS: METOCLOPRAMIDE 5 MG/ML, 2ML IVPush SCH ×3 (06:08→17:41)
[2016-08-23] MEDS: MORPHINE SULFATE 4 MG/ML, 1ML IVPush PRN ×2 (06:38→19:56)
[2016-08-23] MEDS: ERTAPENEM 1 GM in SODIUM CHLORIDE 0.9% 50 ML IV SCH (07:43)
[2016-08-23] MEDS: DOCUSATE 100 MG CAPSULE PO SCH ×2 (09:50→21:59)
[2016-08-23] MEDS: MULTIVITAMIN 1 TABLET PO SCH ×2 (09:50→21:59)
[2016-08-23] MEDS: ENOXAPARIN 30 MG/0.3 ML SQ SCH ×2 (09:50→21:59)
[2016-08-23] MEDS: FERROUS SULFATE 325 MG TABLET PO SCH ×2 (09:50→21:59)
[2016-08-23] MEDS: MICAFUNGIN 100 MG in SODIUM CHLORIDE 0.9% 100 ML IV SCH (09:50)
[2016-08-23 10:04] VITALS: BP 132/71
[2016-08-23] MEDS: OXANDROLONE 2.5 MG TABLET PO SCH ×2 (10:26→23:24)
[2016-08-23] MEDS: FUROSEMIDE 20 MG/2 ML IV SCH (12:00)
[2016-08-23 14:23] VITALS: BP 109/56
[2016-08-23] MEDS: FENTANYL PF 2,500 MCG in SODIUM CHLORIDE 0.9% 200 ML IV SCH (16:28)
[2016-08-23 17:42] VITALS: BP 126/67
[2016-08-23 21:00] VITALS: BP 120/63
[2016-08-24] MEDS: FUROSEMIDE 20 MG/2 ML IV SCH ×2 (00:33→11:58)
[2016-08-24] MEDS: METOCLOPRAMIDE 5 MG/ML, 2ML IVPush SCH ×4 (00:40→16:56)
[2016-08-24] MEDS: MORPHINE SULFATE 4 MG/ML, 1ML IVPush PRN (01:40)
[2016-08-24 04:53] VITALS: BP 126/62
[2016-08-24 05:37] LABS: BLOOD UREA NITROGEN 14 mg/dL (7-18)
[2016-08-24 05:55] LABS: HEMOGLOBIN 7.5 g/dL (13.7-18.0)
[2016-08-24] MEDS: ASPIRIN 325 MG TABLET PO SCH (06:00)
[2016-08-24] MEDS: OXYcodone IR 5MG TABLET PO PRN ×3 (06:13→13:59)
[2016-08-24] MEDS: LACTOBACILLUS 1GM/ PACKET PO SCH ×3 (06:15→16:00)
[2016-08-24] MEDS: METOPROLOL TARTRATE 25 MG TABLET PO SCH ×2 (06:16→17:32)
[2016-08-24 06:18] LABS: DIFF TOTAL CELLS COUNTED 100 CELL DIFF
[2016-08-24 06:19] LABS: ANISOCYTOSIS 1+; HYPOCHROMIA 1+; POIKILOCYTOSIS 1+; POLYCHROMASIA 1+; VERIFY COUNTS? YES
[2016-08-24 06:20] LABS: LARGE PLATELETS 1+
[2016-08-24 07:01] VITALS: BP 105/54
[2016-08-24] MEDS: ERTAPENEM 1 GM in SODIUM CHLORIDE 0.9% 50 ML IV SCH (09:08)
[2016-08-24] MEDS: FERROUS SULFATE 325 MG TABLET PO SCH (09:31)
[2016-08-24] MEDS: DOCUSATE 100 MG CAPSULE PO SCH (09:31)
[2016-08-24] MEDS: MULTIVITAMIN 1 TABLET PO SCH (09:31)
[2016-08-24] MEDS: OXANDROLONE 2.5 MG TABLET PO SCH (09:31)
[2016-08-24] MEDS: MICAFUNGIN 100 MG in SODIUM CHLORIDE 0.9% 100 ML IV SCH (09:32)
[2016-08-24] MEDS: ENOXAPARIN 30 MG/0.3 ML SQ SCH (09:32)
[2016-08-24 12:18] VITALS: BP 130/59
[2016-08-24] MEDS ORDERED: OXAN10TA PO (12:25)
[2016-08-24] MEDS ORDERED: OXYC5TAB3 PO (12:25)
[2016-08-24] MEDS ORDERED: METO25TA35 PO (12:25)
[2016-08-24] MEDS ORDERED: CLIN300C93 PO (14:13)
[2016-08-24] MEDS ORDERED: LEVO500T8 PO (14:13)
[2016-08-24] MEDS ORDERED: METR500T PO (14:14)
[2016-08-24] MEDS: FENTANYL PF 2,500 MCG in SODIUM CHLORIDE 0.9% 200 ML IV SCH (16:55)
[2016-08-24] MEDS: OXYcodone/APAP 7.5/325MG TABLET PO PRN (17:32)
== END 2016-08-24 20:15 | disposition home health service (06) | DRG 853 ==
LOC: ORIP 12:08 → 4NOR 13:03 → 4WST 08-12 15:29 → CCU 08-13 12:11 → 5SO 08-17 18:42 → 4NOR 08-19 17:59
PROVIDERS: ADMIT Surgery
PROC: 0DBM0ZZ Excision of Descending Colon, Open Approach (ICD-10-PCS; 2016-08-05)
PROC: 30233N1 Transfusion of Nonautologous Red Blood Cells into Peripheral Vein, Percutaneous Approach (ICD-10-PCS; 2016-08-07)
PROC: 02HV33Z Insertion of Infusion Device into Superior Vena Cava, Percutaneous Approach (ICD-10-PCS; 2016-08-11)
PROC: B5181ZA Fluoroscopy of Superior Vena Cava using Low Osmolar Contrast, Guidance (ICD-10-PCS; 2016-08-11)
PROC: 0JB80ZZ Excision of Abdomen Subcutaneous Tissue and Fascia, Open Approach (ICD-10-PCS; 2016-08-13)
PROC: 0DN80ZZ Release Small Intestine, Open Approach (ICD-10-PCS; 2016-08-13)
PROC: 0DNW0ZZ Release Peritoneum, Open Approach (ICD-10-PCS; 2016-08-13)
PROC: 0W9F0ZZ Drainage of Abdominal Wall, Open Approach (ICD-10-PCS; 2016-08-13)
PROC: 0WQFXZ2 Repair Abdominal Wall, Stoma, External Approach (ICD-10-PCS; 2016-08-13)
PROC: 30233L1 Transfusion of Nonautologous Fresh Plasma into Peripheral Vein, Percutaneous Approach (ICD-10-PCS; 2016-08-13)
PROC: 30233N1 Transfusion of Nonautologous Red Blood Cells into Peripheral Vein, Percutaneous Approach (ICD-10-PCS; 2016-08-13)
PROC: 30233R1 Transfusion of Nonautologous Platelets into Peripheral Vein, Percutaneous Approach (ICD-10-PCS; 2016-08-13)
PROC: 0DNV0ZZ Release Mesentery, Open Approach (ICD-10-PCS; 2016-08-13)
PROC: 0DNL0ZZ Release Transverse Colon, Open Approach (ICD-10-PCS; 2016-08-13)
PROC: 0DBM0ZZ Excision of Descending Colon, Open Approach (ICD-10-PCS; 2016-08-13)
PROC: 6A550Z2 Pheresis of Platelets, Single (ICD-10-PCS; 2016-08-13)
PROC: 0DNS0ZZ (ICD-10-PCS; principal; 2016-08-13 09:00)
PROC: 30233N1 Transfusion of Nonautologous Red Blood Cells into Peripheral Vein, Percutaneous Approach (ICD-10-PCS; 2016-08-15)
PROC: 30233K1 Transfusion of Nonautologous Frozen Plasma into Peripheral Vein, Percutaneous Approach (ICD-10-PCS; 2016-08-15)
PROC: 5A1945Z Respiratory Ventilation, 24-96 Consecutive Hours (ICD-10-PCS; 2016-08-15)
PROC: 0BH17EZ Insertion of Endotracheal Airway into Trachea, Via Natural or Artificial Opening (ICD-10-PCS; 2016-08-15)
DX: A41.9 Sepsis, unspecified organism (principal); K65.1 Peritoneal abscess; K56.7 Ileus, unspecified; I48.92 Unspecified atrial flutter; I50.30 Unspecified diastolic (congestive) heart failure; D68.69 Other thrombophilia; K56.60 Unspecified intestinal obstruction; K94.09 Other complications of colostomy; D72.829 Elevated white blood cell count, unspecified; E78.5 Hyperlipidemia, unspecified; E86.1 Hypovolemia; M54.5 Low back pain; G89.29 Other chronic pain; I73.9 Peripheral vascular disease, unspecified; D63.8 Anemia in other chronic diseases classified elsewhere; F17.210 Nicotine dependence, cigarettes, uncomplicated; I48.91 Unspecified atrial fibrillation; I11.0 Hypertensive heart disease with heart failure; K66.0 Peritoneal adhesions (postprocedural) (postinfection); Z98.1 Arthrodesis status; Z91.19 Patient's noncompliance with other medical treatment and regimen; Z86.718 Personal history of other venous thrombosis and embolism
CPT/HCPCS: 36415; 36569; 36600; 71010; 74000; 74176; 74177; 74250; 76937; 77001; 80048; 80053; 82800; 82803; 82810; 82947; 82962; 83605; 83735; 84100; 84132; 84134; 84478; 84484; 85014; 85018; 85025; 85610; 85730; 86850; 86900; 86923; 87040; 87070; 87075; 87076; 87077; 87081; 87186; 87205; 93005; 93308; 93321; 93325; 94002; 94003; 94640; J0610; J1170; J1335; J1650; J1815; J1885; J2248; J2250; J2405; J2543; J2704; J2710; J3010; J3475; J3480; J3490; J7620; P9045; Q0169; Q9967; C1751; C1760; C1765; J0282; J1940; J2270; J2765; J3420; J7030; J7040; J7050; J7060; J7120; P9016; P9017; P9035; S0028; S0074